=== PATIENT | female | born 1960 | race Caucasian/White ===

== ENCOUNTER → 2016-08-09 | Outpatient (CLI) | payer MEDICARE ==
[~2016-08-09] MED LIST: ALENDRONATE SOD70 M1 PO; CALCIUM + D 6001 TA1 PO; CILOSTAZOL50 MG PO; CLONIDINE PO; CYCLOBENZAPRINE5 MG PO; FERROUS SULFAT160 MG PO; HYDROCODON-ACE1 EAC5 PO; LANSOPRAZOLE30 M2 PO; LEVOTHYROXINE88 MCG PO; LISINOPRIL2.5 MG PO; PROBIOTIC1 EAC1 PO; SPIRIVA18 MCG INH; VITAMIN D1000 UNI1 PO; VITAMIN D50000 UNIT PO
--- NOTE | ~2016-08-09 | MY11 ---
[facility] A Service of [facility] RADIOLOGY TEXT RESULTS PATIENT: DAMARIS PINEDA LOCATION: [facility] : 56 UNIT #: [id number] AGE: [address]: Rashaad Mei MD SEX: F ORDER DR: [id number] [facility] [address] [place], [place] [address] [id number] O MR#: [id number] Acc #: [id number] NAME: DAMARIS PINEDA : 1960 SEX: F STUDY DATE/TIME: 08/09/2016 7:56 UNIT: [facility] ROOM: STUDY DESCRIPTION: MY Mammogram Screening [facility] [place] Attending Physician: Rashaad Mei M.D. Referring Physician: Rashaad Mei M.D. Ordering Physician: Rashaad Mei M.D. Primary Care Physician: Rashaad Mei M.D. MEDICAL IMAGING REPORT This report is preliminary unless electronic signature is present EXAM Digital screening mammogram, 08/09/2016 HISTORY 56-year-old woman no risk elevation. Prior right breast biopsy for lump. Annual screening. COMPARISON Outside mammograms 05/17/2006 and 05/21/2014 [facility]. FINDINGS Digital imaging of each breast was completed utilizing screening protocol. Review includes FDA-approved CAD device. The breast parenchyma is mildly heterogeneous and partially fatty replaced. Parenchymal opacities persist in the upper and outer quadrants of each breast. There is mild dominance central left breast location. Findings are stable. I see no developing mass. There are no interval occurring microcalcifications and no suspicious architectural deformity. Loop recorder projects mid inner posterior third left breast. IMPRESSION Stable benign mammogram. Annual screening recommended. Patients over the age of 40 are entered into a reminder system with target due date for the next mammogram. A result letter will also be sent to the patient. BIRADS: 2 Benign Finding Dictated by... Aditya Perkins M.D. THIS IS AN ELECTRONICALLY VERIFIED REPORT [facility] A Service of [facility] RADIOLOGY TEXT RESULTS PATIENT: DAMARIS PINEDA LOCATION: [facility] : 56 UNIT #: [id number] AGE: [address]: Rashaad Mei MD SEX: F ORDER DR: Aditya Perkins M.D. at 08/10/2016 2:01 PM [place] TD: 08/10/2016 12:01 JOB #: [id number] MEDICAL IMAGING REPORT Page 1 of 1 COPY
== END | disposition home or self-care (01) ==
LOC: CWCC 08-08 08:15
DX: Z12.31 Encounter for screening mammogram for malignant neoplasm of breast (principal); Z98.890 Other specified postprocedural states
CPT/HCPCS: G0202